=== PATIENT | female | born 1985 | race Caucasian/White ===

== ENCOUNTER → 2017-04-27 | Outpatient (CLI) | payer OTHER ==
--- NOTE | 2017-04-27 16:34 | REP ---
Clinical: Anatomical evaluation. Comparison: None . Findings: Examination demonstrates a single live intrauterine in transverse (head to maternal right) presentation. motion is identified by technologist. Placenta is noted anteriorly and grade zero without evidence for placenta previa or abruption. Amniotic fluid volume is normal. Cervix measures 4.5 cm in length and appears closed. No evidence for nuchal cord. Gestational age by LMP 18 weeks 4 days with LUIS FELIPE 09/24/2017 . Gestational age by current measurements 19 weeks 1 day with LUIS FELIPE 09/20/2017 . FHR equals 150 beats per minute. BPD 4.3 cm 19 weeks 1 day HC 16.3 cm 19 weeks 0 days AC 13.8 cm 19 weeks 1 day FL 3.0 cm 19 weeks 1 day HL 2.9 cm 19 weeks 3 days HC/AC ratio 1.18 Estimated weight 276 grams ( 67th percentile). Anatomical assessment demonstrates normal structures including cranium, choroid plexus, cavum, cerebellum/posterior fossa, facial features, lungs, diaphragm, stomach, cord insertion/three-vessel cord, kidneys/bladder, and extremities. Bilateral renal pelviectasis within normal limits. Impression: Single live intrauterine in transverse lie demonstrating appropriate interval growth. Limited evaluation of the heart/ventricular outflow tracts and spine may warrant reevaluation and follow-up. Remainder of the anatomical assessment is complete and normal. Signed by Tapan Temple MD 04/27/2017 04:26 P
== END ==
LOC: M RAD 15:39
PROVIDERS: ATTEND Advanced Practice Midwife
DX: Z36.2 Encounter for other antenatal screening follow-up (principal)

== ENCOUNTER → 2017-05-26 | Outpatient (CLI) | payer OTHER ==
--- NOTE | 2017-05-26 19:35 | REP ---
Clinical: Anatomical evaluation. Comparison: 04/27/2017 . Findings: Examination demonstrates a single live intrauterine in breech presentation. motion is identified by technologist. Placenta is noted anteriorly and grade one without evidence for placenta previa or abruption. Amniotic fluid volume is normal. Cervix measures 5.8 cm in length and appears closed. Evidence for nuchal cord. Gestational age by LMP 22 weeks 5 days with LUIS FELIPE 09/24/2017 . Gestational age by current measurements 24 weeks 0 days with LUIS FELIPE 09/15/2017 . FHR equals 153 beats per minute. Estimated weight 654 grams ( 89th percentile). Anatomical assessment demonstrates normal structures including cranium, choroid plexus, cavum, cerebellum/posterior fossa, facial features, lungs, diaphragm, stomach, cord insertion/three-vessel cord, kidneys/bladder, and extremities. Impression: Single live intrauterine in breech presentation demonstrating appropriate interval growth. Limited evaluation of the heart and spine are again noted due to positioning. Mild renal pelviectasis is upper limits of normal. Remainder of the anatomical assessment is complete and normal. Nuchal cord noted. Signed by Tapan Temple MD 05/26/2017 04:26 P
== END ==
LOC: M RAD 17:46
PROVIDERS: ATTEND Advanced Practice Midwife
DX: Z34.82 Encounter for supervision of other normal pregnancy, second trimester (principal); Z3A.22 22 weeks gestation of pregnancy

== ENCOUNTER → 2017-06-28 | Outpatient (CLI) | payer OTHER | LOC: M RAD 17:10 | DX: Z34.82 Encounter for supervision of other normal pregnancy, second trimester (principal) ==

== ENCOUNTER → 2017-07-26 | Outpatient (CLI) | payer OTHER | LOC: M RAD 14:14 | DX: Z36.89 Encounter for other specified antenatal screening (principal); Z3A.32 32 weeks gestation of pregnancy | CPT/HCPCS: 76816 ==

== ENCOUNTER → 2017-09-03 | Outpatient (REF) | payer OTHER | LOC: M LAB REF 13:06 | DX: Z34.83 Encounter for supervision of other normal pregnancy, third trimester (principal); Z3A.00 Weeks of gestation of pregnancy not specified ==

== ENCOUNTER 2017-09-24 22:25 | Inpatient (IN) | payer OTHER ==
[2017-09-24] MEDS ORDERED: LR 1,000 ML IV (23:32)
[2017-09-25 00:13] LABS: HEMATOCRIT 36.7 % (36.0-47.0); HEMOGLOBIN 12.5 g/dl (12.0-15.5); MEAN CORPUSCULAR HEMOGLOBIN 30.3 pg (27.0-33.0); MEAN CORPUSCULAR HGB CONC 34.1 g/dl (32.0-36.5); MEAN CORPUSCULAR VOLUME 89.1 fl (80.0-96.0); PLATELET COUNT, AUTOMATED 219 10^3/uL (150-450); RED BLOOD COUNT 4.12 10^6/uL (4.00-5.40); RED CELL DISTRIBUTION WIDTH 13.2 % (11.5-14.5); WHITE BLOOD COUNT 15.4 10^3/uL (4.0-10.0)
[2017-09-25] MEDS: BUTORPHANOL 2 MG/ML INJ (J0595) IV (01:47)
[2017-09-25] MEDS: PROMETHAZINE INJ 25 MG/ML VIAL (J2550) IV (01:48)
[2017-09-25] MEDS: LACTATED RINGER'S 1000 ML IV (01:48)
[2017-09-25] MEDS ORDERED: OXYTOCIN 30 UNITS IN 0.9% NaCl 500ML IV BAG (J2590) As Ordered (01:56)
[2017-09-25] MEDS: OXYTOCIN DRIP 30 UNITS in APPROPRIATE DILUENT 1 EA IV (04:29)
[2017-09-25] MEDS: LIDOCAINE 1% MDV 20ML VIAL INFIL (04:30)
[2017-09-25] MEDS ORDERED: DIBUCAINE 1% OINTMENT 30GM TOP (04:30)
[2017-09-25] MEDS ORDERED: METHYLERGONOVINE MALEATE 0.2 MG TAB PO (04:30)
[2017-09-25] MEDS ORDERED: MOM 30ML SUSPENSION UDC PO (04:30)
[2017-09-25] MEDS ORDERED: DOCUSATE SODIUM 100 MG CAP PO (04:30)
[2017-09-25] MEDS ORDERED: ANUSOL HC CREAM 30GM TOP (04:30)
[2017-09-25] MEDS: RHOGAM 300 MCG (1500 IU) INJ (J2790) IM (08:58)
[2017-09-25] MEDS: MEASLES,MUMPS,RUBELLA VACCINE INJ (MMR-II) (90707) SC (08:58)
[2017-09-25] MEDS: ACETAMINOPHEN 500 MG TAB PO ×2 (09:19→14:31)
[2017-09-25] MEDS: PRENATAL VITAMINS CHEWABLE TABLET PO (09:19)
[2017-09-25] MEDS: IBUPROFEN 800 MG TAB PO (21:44)
[2017-09-26] MEDS: IBUPROFEN 800 MG TAB PO (07:42)
[2017-09-26] MEDS: PRENATAL VITAMINS CHEWABLE TABLET PO (07:42)
== END 2017-09-26 12:40 | disposition home or self-care (01) | DRG 775 ==
LOC: M LDO 22:25 → M OBS 09-25 05:50 → M LDI 23:59
PROVIDERS: Advanced Practice Midwife
PROC: 10E0XZZ Delivery of Products of Conception, External Approach (ICD-10-PCS; principal; 2017-09-25)
PROC: 0KQM0ZZ Repair Perineum Muscle, Open Approach (ICD-10-PCS; 2017-09-25)
PROC: 10907ZC Drainage of Amniotic Fluid, Therapeutic from Products of Conception, Via Natural or Artificial Opening (ICD-10-PCS; 2017-09-25)
DX: O48.0 Post-term pregnancy (principal); Z37.0 Single live birth; Z3A.40 40 weeks gestation of pregnancy; O70.1 Second degree perineal laceration during delivery

== ENCOUNTER → 2019-06-29 | Outpatient (REF) | payer OTHER ==
[~2019-06-29] MED LIST: IBUP-1114 PO; MAPA500T2 PO
[2019-06-29 12:24] LABS: BASO % 0.5 % (0.0-1.0); EOS # 0.1 10^3/uL (0.0-0.5); EOS % 1.9 % (0.0-3.0); HEMATOCRIT 37.3 % (36.0-47.0); HEMOGLOBIN 12.2 g/dl (12.0-15.5); LYMPH # 1.4 10^3/uL (1.5-5.0); LYMPH % 19.2 % (24.0-44.0); MEAN CORPUSCULAR HEMOGLOBIN 29.3 pg (27.0-33.0); MEAN CORPUSCULAR HGB CONC 32.7 g/dl (32.0-36.5); MEAN CORPUSCULAR VOLUME 89.4 fl (80.0-96.0); MONO # 0.5 10^3/uL (0.0-0.8); MONO % 6.9 % (0.0-5.0); NEUTROPHILS # 5.3 10^3/uL (1.5-8.5); NEUTROPHILS % 71.4 % (36.0-66.0); PLATELET COUNT, AUTOMATED 249 10^3/uL (150-450); RED BLOOD COUNT 4.17 10^6/uL (4.00-5.40); WHITE BLOOD COUNT 7.4 10^3/uL (4.0-10.0)
[2019-06-29 12:30] LABS: C REACTIVE PROTEIN QUANTITATIV 2.52 MG/DL (0.00-0.30); RHEUMATOID FACTOR QUANT < 10.0 IU/ML (<15.0)
[2019-06-29 14:07] LABS: ERYTHROCYTE SEDIMENTATION RATE 15 mm/hr (0-20)
[2019-07-01 00:11] LABS: ANA (HEP2) Positive (.); CYCLIC CITRULLINATED PEPTIDE 13 units (0-19)
== END ==
LOC: M SFHCPLAZ 10:24
PROVIDERS: ATTEND Internal Medicine Infectious Disease
DX: A69.20 Lyme disease, unspecified (principal); M25.50 Pain in unspecified joint

== ENCOUNTER → 2019-08-03 | Outpatient (REF) | payer OTHER ==
[2019-08-03 12:18] LABS: HEMOGLOBIN A1c 5.2 %
[2019-08-03 12:19] LABS: C REACTIVE PROTEIN QUANTITATIV < 0.30 MG/DL (0.00-0.30); THYROID STIMULATING HORMONE 0.993 uIU/ML (0.358-3.740)
== END ==
LOC: M SFHCPLAZ 09:14
PROVIDERS: ATTEND Internal Medicine Infectious Disease
DX: M25.50 Pain in unspecified joint (principal); R53.82 Chronic fatigue, unspecified; W57.XXXD Bitten or stung by nonvenomous insect and other nonvenomous arthropods, subsequent encounter

== ENCOUNTER 2019-12-11 11:55 | Emergency (ER) | payer OTHER ==
[~2019-12-11] VITALS: Ht 165.1 cm; Wt 66.1 kg
[2019-12-11] MEDS ORDERED: DULO1CAP5 (12:05)
[2019-12-11] MEDS ORDERED: METOCLOPRAMIDE INJ 10MG/2ML VIAL (J2765 PER 1) IV ONE (13:00)
[2019-12-11] MEDS ORDERED: NS 1,000 ML IV ONE (13:00)
[2019-12-11 13:15] LABS: BASO # 0.1 10^3/uL (0.0-0.2); BASO % 0.6 % (0.0-1.0); EOS # 0.4 10^3/uL (0.0-0.5); EOS % 3.7 % (0.0-3.0); HEMATOCRIT 37.7 % (36.0-47.0); HEMOGLOBIN 12.5 g/dl (12.0-15.5); LYMPH # 1.5 10^3/uL (1.5-5.0); LYMPH % 14.6 % (24.0-44.0); MEAN CORPUSCULAR HEMOGLOBIN 29.6 pg (27.0-33.0); MEAN CORPUSCULAR HGB CONC 33.2 g/dl (32.0-36.5); MEAN CORPUSCULAR VOLUME 89.3 fl (80.0-96.0); MONO # 0.7 10^3/uL (0.0-0.8); MONO % 6.8 % (0.0-5.0); NEUTROPHILS # 7.8 10^3/uL (1.5-8.5); NEUTROPHILS % 73.8 % (36.0-66.0); PLATELET COUNT, AUTOMATED 259 10^3/uL (150-450); RED BLOOD COUNT 4.22 10^6/uL (4.00-5.40); WHITE BLOOD COUNT 10.5 10^3/uL (4.0-10.0)
[2019-12-11 13:38] LABS: HCG, SERUM QUALITATIVE NEGATIVE (NEGATIVE)
[2019-12-11 13:48] LABS: ALBUMIN 3.9 GM/DL (3.2-5.2); ALT/SGPT 18 U/L (12-78); BILIRUBIN,DIRECT 0.1 MG/DL (0.0-0.2); BILIRUBIN,TOTAL 0.4 MG/DL (0.2-1.0); BLOOD UREA NITROGEN 10 MG/DL (7-18); CALCIUM LEVEL 8.2 MG/DL (8.5-10.1); CARBON DIOXIDE LEVEL 25 MEQ/L (21-32); CHLORIDE LEVEL 110 MEQ/L (98-107); CREATININE FOR GFR 0.63 MG/DL (0.55-1.30); GLOMERULAR FILTRATION RATE > 60.0 (>60); GLUCOSE, FASTING 87 MG/DL (70-100); LIPASE 73 U/L (73-393); MAGNESIUM LEVEL 2.3 MG/DL (1.8-2.4); POTASSIUM SERUM 4.2 MEQ/L (3.5-5.1); SODIUM LEVEL 139 MEQ/L (136-145); TOTAL PROTEIN 7.5 GM/DL (6.4-8.2)
[2019-12-11] MEDS ORDERED: ISOVUE-370 76% 100ML VIAL As Ordered ONE (13:50)
[2019-12-11 14:26] VITALS: BP 104/51
--- NOTE | 2019-12-11 16:07 | REP ---
REASON: Dizziness. COMPARISON: No priors. FINDINGS: The superior mediastinal structures are midline. The cardiac silhouette is unremarkable in size, shape, and position. The diaphragmatic surfaces of the lungs are regular, and the costophrenic angles are clear. The pulmonary williamson are clear. The imaged osseous structures are intact. IMPRESSION: There is no acute cardiopulmonary disease. Electronically Signed by Pieter Richard DO 12/11/2019 04:16 P
--- NOTE | 2019-12-11 16:14 | REP ---
REASON: Left lower quadrant pain. PRIORS: None. CONTRAST: 100 mL Isovue 370. The lung bases are clear. The liver, gallbladder, spleen, pancreas, adrenal glands and kidneys are within normal limits. The abdominal aorta and para-aortic regions are within normal limits. The intra-abdominal and intrapelvic bowel loops and their mesenteries are within normal limits. No free fluid or free air is seen in the abdomen or pelvis. There is no evidence of an intra-abdominal or intrapelvic mass or adenopathy. Bone window technique throughout the examination shows the osseous structures to be within normal limits. IMPRESSION: CT findings are within normal limits. Electronically Signed by Pieter Richard DO 12/11/2019 04:16 P
--- NOTE | 2019-12-12 08:01 | ECGEPIP ---
[facility] - ED Test Date: 2019-12-11 Pat Name: LILIA REDDY Department: Room: - Gender: Female [employer] Work[employer]: ashley : 1985 Requested By: SHIVANI Griffith Order Number: [id number] Reading MD: Jorge Smtih Measurements Intervals [place] Rate: 67 P: 37 UT: 129 QRS: 8 QRSD: 92 T: 15 QT: 394 QTc: 419 Interpretive Statements SINUS RHYTHM INCOMPLETE RIGHT BUNDLE BRANCH BLOCK NO PRIORS FOR COMPARISON Electronically Signed on 12-12-2019 8:01:30 EDT by Jorge Smith
== END 2019-12-11 14:34 | disposition home or self-care (01) ==
LOC: M ED 11:55
DX: R19.7 Diarrhea, unspecified (principal); R51 Headache; J45.909 Unspecified asthma, uncomplicated; Z87.19 Personal history of other diseases of the digestive system
CPT/HCPCS: 36415; 71046; 74177; 80048; 80076; 83690; 83735; 84100; 84439; 84443; 84703; 85025; 93005; 93041; 96361; 96374; 99284; J2765; Q9967